=== PATIENT | female | born 1965 | race Caucasian/White ===

== ENCOUNTER 2017-10-17 20:37 | Observation (INO) | payer OTHER ==
[~2017-10-17] VITALS: Ht 161.3 cm; Wt 88.8 kg
[~2017-10-17 20:37] MED LIST: NOHOMEMEDS
[2017-10-17 20:53] LABS: HEMOGLOBIN 14.6 G/DL (11.9-15.5); MCH 32.2 PG (29.0-34.0); MCHC 34.8 G/DL (30.0-36.0); MCV 92.5 FL (83-99); PLATELET COUNT 312 K/uL (156-360); RBC DIS.WIDTH-CV 11.6 % (11.8-14.6); RBC DIS.WIDTH-SD 39.2 % (39-53); RED BLOOD COUNT 4.54 M/uL (3.80-5.20); WHITE BLOOD COUNT 8.2 K/uL (4.1-10.2)
[2017-10-17 21:02] LABS: AMYLASE 87 IU/L (1-118); CHLORIDE 106 mEq/L (99-109); POTASSIUM 3.7 mEq/L (3.7-5.4); SODIUM 141 mEq/L (136-147)
[2017-10-17 21:03] LABS: GLUCOSE 160 mg/dL (70-99)
[2017-10-17 21:04] LABS: INTER. NORMALIZED RATIO 0.9
[2017-10-17 21:06] LABS: PTT 33.2 SEC (25-37)
[2017-10-17 21:07] LABS: CREATININE 0.9 mg/dL (0.6-1.3); GFR ESTIMATE (CALCULATED) > 59 mL/min/
[2017-10-17 21:08] LABS: UREA NITROGEN (BUN) 24 mg/dL (9-23)
[2017-10-17 21:10] LABS: LIPASE 25 U/L (1.0-51.0)
[2017-10-17 21:16] LABS: TROP-I INTERPRETATION NEGATIVE; TROPONIN-I 0.02 ng/mL (0.0-0.30)
[2017-10-17 22:44] LABS: APPEARANCE SL.HAZY ((CLEAR)); BILIRUBIN NEGATIVE; BLOOD SMALL; COLOR YELLOW ((YELLOW)); GLUCOSE (STRIP) NEGATIVE; KETONES 5; LEUKOCYTES LARGE; NITRITE NEGATIVE; PROTEIN (STRIP) 30; UROBILINOGEN 0.2 MG/DL (0.2-1.0)
[2017-10-17] MEDS ORDERED: GLUCOPHAGE500 MG PO ×2 (22:51→22:52)
[2017-10-17 22:56] LABS: BACTERIA NONE SEEN /HPF; EPITHELIAL CELLS 1+ /HPF; MUCUS TRACE /LPF; UCUL ADDED? YES
[2017-10-17] MEDS ORDERED: SYNTHROID50 MCG PO (22:56)
[2017-10-17] MEDS ORDERED: SYNTHROID75 MCG PO (22:57)
[2017-10-17 22:58] LABS: AMPHETAMINE NEGATIVE (500 ng/mL); BARBITURATES NEGATIVE (200 ng/mL); BENZODIAZEPINES NEGATIVE (150 ng/mL); BUPRENORPHINE NEGATIVE (10 ng/mL); COCAINE NEGATIVE (150 ng/mL); METHADONE NEGATIVE (200 ng/mL); METHAMPHETAMINE NEGATIVE (500 ng/mL); OPIATES (MORPHINE) NEGATIVE (100 ng/mL); OXYCODONE NEGATIVE (100 ng/mL); PHENCYCLIDINE NEGATIVE (25 ng/mL); PROPOXYPHENE NEGATIVE (300 ng/mL); THC CANNABINOIDS NEGATIVE (50 ng/mL); TRICYCLIC ANTIDEPRESSANTS NEGATIVE (300 ng/mL)
[2017-10-17] MEDS ORDERED: VITAMIN D31000 UNIT PO (22:58)
[2017-10-17] MEDS ORDERED: VITAMIN B-121000 MC3 PO (22:59)
[2017-10-17] MEDS ORDERED: FLORASTOR250 MG PO (23:00)
[2017-10-17 23:36] LABS: SPECIFIC GRAVITY > 1.060 (1.000-1.030)
[2017-10-18 04:36] LABS: HDL CHOLESTEROL 42 MG/DL (Desirable>=50); LDL CHOLESTEROL 121 mg/dL (Desirable<100); NON-HDL CHOLESTEROL 186 mg/dL (Desirable<160); TOTAL CHOLESTEROL 228 mg/dL (Desirable<200); TRIGLYCERIDES 327 MG/DL (Normal: <150)
[2017-10-18 07:41] VITALS: BP 126/71
[2017-10-18 11:56] VITALS: BP 126/69
[2017-10-18] MEDS ORDERED: BACTRIM,SEPT1 TABLET PO (12:28)
[2017-10-18 15:32] VITALS: BP 129/58
[2017-10-18 16:53] VITALS: BP 129/58
[2017-10-19 10:04] LABS: HEMOGLOBIN A1c (GLYCOHEMOGLOB) 6.2 % (Below 5.7)
== END 2017-10-18 18:40 | disposition home or self-care (01) ==
LOC: EME → EDBD 20:37 → EME 20:37 → EDOF 10-18 00:50 → ENRESERV 10-18 00:51 → 4SOUTH 10-18 07:26
PROVIDERS: Emergency Medicine; Hospitalist
DX: G45.9 Transient cerebral ischemic attack, unspecified (principal); G43.109 Migraine with aura, not intractable, without status migrainosus; N39.0 Urinary tract infection, site not specified; E11.9 Type 2 diabetes mellitus without complications; Z82.3 Family history of stroke; Z82.49 Family history of ischemic heart disease and other diseases of the circulatory system; Z79.84 Long term (current) use of oral hypoglycemic drugs
CPT/HCPCS: 70450; 70496; 70498; 70551; 71045; 80047; 80048; 80061; 81003; 82150; 82948; 83036; 83690; 84484; 85027; 85610; 85730; 87086; 93005; 99281; 99284; G0378; J0696; J1650; J1885; J2060; J2405; J7030